=== PATIENT | female | born 1995 | race Caucasian/White ===

== ENCOUNTER 2018-08-11 11:10 | Emergency (ER) | payer SELFPAY ==
[2018-08-11 11:25] VITALS: BP 132/89
[2018-08-11] MEDS ORDERED: methylPREDNISolone SOD SUCC 125 MG/2 ML VIAL IM ONE (11:28)
--- NOTE | 2018-08-11 11:29 | ED Physician Documentation ---
Upper Respiratory Symptoms - HISTORIAN Historian: patient - HPI Stated Complaint: Congestion Chief Complaint: Upper Respiratory Symptoms Additional Information: Patient presents with a 2 day history of nasal congestion, bodyaches, headache, ear pain with bloody nose today. She denies fever. Onset: days ago (2) Duration: constant Context: denies: recent foreign travel Associated Symptoms: earache, runny nose, sinus pain, sinus drainage. denies: chills, shortness of breath - ROS CONST/EYES: denies: weakness CVS/RESP: denies: shortness of breath LYMPH: denies: rash GI/: denies: vomiting, nausea NEURO/PSYCH: denies: dizziness MS/SKIN: muscle aches - PAST HX Lung Disease: none PE Risk Factors: none Allergies/Adverse Reactions: Allergies Allergy/AdvReac Type Severity Reaction Status Date / Time Penicillins Allergy Verified 08/11/18 11:25 Home Medications: Ambulatory Orders Medication Instructions Recorded predniSONE [Deltasone] 20 mg PO DIRECTED #6 tablet 08/11/18 - SOCIAL HX Smoking History: cigarettes, greater than 1 pack/day Alcohol Use: none Drug Use: none - FAMILY HX Family History: none - VITAL SIGNS Vital Signs: Vital Signs Temp Pulse Resp BP Pulse Ox 96.3 F L 114 H 15 132/89 98 08/11/18 11:15 08/11/18 11:15 08/11/18 11:15 08/11/18 11:15 08/11/18 11:15 - REVIEWED ASSESSMENTS Nursing Assessment Reviewed: Yes Vitals Reviewed: Yes ED Results Lab/Radiology - Orders Orders: ED Orders Category Date Time Status methylPREDNISolone SOD SUCC [Solu-MEDROL] Med 08/11/18 11:28 Once 125 mg IM NOW ONE Upper Respiratory Symptoms - EXAM General Appearance: no acute distress, alert EENT: PERRL, ear nml Neck: supple Respiratory: no resp. distress, breath sounds nml, speaks full sentences Abdomen: non-tender, nml bowel sounds CVS: reg rate & rhythm, heart sounds normal Skin: color nml, no rash, warm,dry Extremities: non-tender Neuro/Psych: oriented x3, mood/affect nml Discharge Clincal Impression: Viral upper respiratory illness Prescriptions: predniSONE [Deltasone] 20 mg PO DIRECTED #6 tablet Referrals: Chey Huang MD [STAFF PHYSICIAN] - 2 Days Condition: Stable Disposition: 01 HOME, SELF-CARE Decision to Admit: NO Date of Decison to Admit: 08/11/18 Decision Time: 11:41
== END 2018-08-11 11:40 | disposition home or self-care (01) ==
LOC: ED 11:10
DX: J06.9 Acute upper respiratory infection, unspecified (principal); Z72.0 Tobacco use
CPT/HCPCS: 96372; 99282; 99283; J2930

== ENCOUNTER 2018-09-02 12:36 | Emergency (ER) | payer SELFPAY ==
[2018-09-02 13:06] VITALS: BP 136/88
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
== END 2018-09-02 14:19 | disposition home or self-care (01) ==
LOC: ED 12:36
DX: Z04.1 Encounter for examination and observation following transport accident (principal); M54.2 Cervicalgia; M54.6 Pain in thoracic spine; V49.59XA Passenger injured in collision with other motor vehicles in traffic accident, initial encounter; Y93.89 Activity, other specified; Y92.410 Unspecified street and highway as the place of occurrence of the external cause
CPT/HCPCS: 72040; 72072; 81025; 99283; 99284

== ENCOUNTER 2018-11-15 12:36 | Emergency (ER) | payer SELFPAY ==
--- NOTE | 2018-11-15 12:47 | ED Physician Documentation ---
Sore Throat/Dental Pain - HISTORIAN Historian: patient - HPI Stated Complaint: sore throat x 2 days no fever Chief Complaint: Sore Throat Onset: days ago (2) Context: Possible Infection Associated Symptoms: sore throat, mild, runny nose. denies: fever, chills, unable to swallow, congestion Worsened By: nothing Further Comments: yes (She has no sick contacts. She has no fever. She has a sore throat x 2 days. She had coughing episode this am . She has no rash. She states the OTC meds are not helping "much") - ROS CONST: no problems - PAST HX Past History: none Immunizations: UTD Allergies/Adverse Reactions: Allergies Allergy/AdvReac Type Severity Reaction Status Date / Time Penicillins Allergy Verified 09/02/18 12:57 Home Medications: Ambulatory Orders Medication Instructions Recorded Cyclobenzaprine HCl [Flexeril] 5 mg PO TID PRN #15 tablet 09/02/18 - SOCIAL HX Smoking History: non-smoker Alcohol Use: none Drug Use: none - FAMILY HX Family History: No - VITAL SIGNS Vital Signs: Vital Signs Temp Pulse Resp BP Pulse Ox 136/88 09/02/18 14:18 - REVIEWED ASSESSMENTS Nursing Assessment Reviewed: Yes Vitals Reviewed: Yes ED Results Lab/Radiology - Orders Orders: ED Orders Category Date Time Status Strep [GRP A STREP SCREEN] Stat Lab 11/15/18 Ordered Sore throat Physical Exam - EXAM General Appearance: no acute distress, alert Head/Neck: head nml inspection, no lymphadenopathy. No: pain over sinuses Eyes: eyes nml inspection Mouth/Throat: lips nml, gums nml, pharynx nml, voice nml, no drooling, no air way problems, membranes nml Respiratory: no resp. distress, breath sounds nml CVS: reg. rate & rhythm, heart sounds nml Abdomen: soft Extremities: non-tender Skin: warm/dry, normal color Neuro/Psych: oriented x3 Discharge Clincal Impression: Sore throat Referrals: Primary Doctor,No [Primary Care Provider] - 2 Days Comments: 1. Warm salt water gargles 2. OTC meds as directed and as needed for pain 3. See PCP in 2 days if no improvement 4. Return to ER for any increasing concerns Condition: Stable Disposition: 01 HOME, SELF-CARE Decision to Admit: NO Date of Decison to Admit: 11/15/18 Decision Time: 12:55
[2018-11-15 12:51] VITALS: BP 137/94
== END 2018-11-15 12:57 | disposition home or self-care (01) ==
LOC: ED 12:36
DX: J02.9 Acute pharyngitis, unspecified (principal)
CPT/HCPCS: 87070; 87880; 99282; 99283

== ENCOUNTER 2018-12-05 23:06 | Emergency (ER) | payer SELFPAY ==
[2018-12-05 23:20] VITALS: BP 127/95
--- NOTE | 2018-12-05 23:24 | ED Physician Documentation ---
Fall - HISTORIAN Historian: patient - HPI Stated Complaint: Fall, c/o pain to Rt elbow and knee...also to Rt side though did'nt hit [place] Chief Complaint: Fall Additional Information: Patient presents to ED after falling down the stairs just prior to arrival tonight. Patient states she missed a step and fell down on her right knee and right outstretched hand. She denies hitting her head or loss of consciousness. Patient ambulated into ER. She states her right knee has a small abrasion on it and that hurts not the actual knee. She also complains of right shoulder and right elbow pain. Onset: just prior to arrival Where: home Context: tripped r: mild Associated Symptoms:: no loss of consciousness Location of Pain/Injury: R shoulder, upper extremity (right elbow) Injury to Right Extremity: elbow Injury to Left Extremity: shoulder Further Comments: no - ROS CONST: no problems NEURO: denies: dizziness MS/SKIN/LYMPH: denies: weakness, numbness, back pain EYES/ENT: none CVS/RESP: none GI/: denies: nausea, vomiting - PAST HX Past History: none Allergies/Adverse Reactions: Allergies Allergy/AdvReac Type Severity Reaction Status Date / Time Penicillins Allergy Verified 12/05/18 23:23 Home Medications: Ambulatory Orders Medication Instructions Recorded NK 11/15/18 - SOCIAL HX Smoking History: non-smoker Alcohol Use: none Drug Use: none - FAMILY HX Family History: none - VITAL SIGNS Vital Signs: Vital Signs Temp Pulse Resp BP Pulse Ox 73 16 127/95 99 12/05/18 23:06 12/05/18 23:06 12/05/18 23:06 12/05/18 23:06 - REVIEWED ASSESSMENTS Nursing Assessment Reviewed: Yes Vitals Reviewed: Yes ED Results Lab/Radiology - Radiology Radiology Impressions: Report Submission Date: Dec 06, 2018 12:02:44 AM CDT Patient Study Name: ABIODUN BARNHART Date: Dec 05, 2018 11:25:08 PM CDT Modality Type: DX Gender: F Description: SHOULDER 2 VIEWS OR MORE : 89 Institution: [facility] Physician: JENNIFER MORENO Right shoulder History: Status post fall Three views of the right shoulder demonstrate movement of the humeral head into internal and external rotation without evidence for acute fracture or dislocation. The AC joint is intact. Impression: No osseous abnormality. Electronically signed on Dec 06, 2018 12:02:44 AM CDT by: Allie Gore Report Submission Date: Dec 06, 2018 12:01:38 AM CDT Patient Study Name: ABIODUN BARNHART Date: Dec 05, 2018 11:34:25 PM CDT Modality Type: DX Gender: F Description: ELBOW 3 VIEWS : 89 Institution: [facility] Physician: JENNIFER MORENO Right elbow History: Status post fall Three views of the right elbow demonstrate no evidence for acute fracture or dislocation. There is no joint effusion. Impression: No osseous abnormality. Electronically signed on Dec 06, 2018 12:01:38 AM CDT by: Allie Gore Fall Physical Exam - Physical Exam General Appearance: no acute distress, alert Head: non-tender, no swelling, no obvious injury Neck: non-tender, painless ROM Eye: [place] ENT: nml external inspection, no dental injury Resp/CVS: chest non-tender, breath sounds nml, no resp. distress Abdomen: soft, normal bowel sounds Neuro: oriented x3, CN's nml as tested Skin: color nml, no rash Back: normal inspection Extremities: atraumatic, pelvis stable, nml ROM. No: painful weight bearing Joint: joints nml, nml ROM - Narciso Coma Score Eyes Open: Spontaneous Speech: Oriented Motor: Obeys Commands Discharge Clincal Impression: Fall down stairs Qualifiers: Encounter type: initial encounter Qualified Code(s): W10.8XXA - Fall (on) (from) other stairs and steps, initial encounter Referrals: Primary Doctor,No [REFERRING] - 2 Days Additional Instructions: 1. Tylenol and/or Ibuprofen as needed for pain. 2. Apply ice to affected areas as needed for comfort 3. Stay active 4. Follow up with PCP within 1 week 5. Return to ER for new or worsening symptoms. Condition: Stable Disposition: 01 HOME, SELF-CARE Decision to Admit: NO Date of Decison to Admit: 12/05/18 Decision Time: 00:08
--- NOTE | 2018-12-06 06:22 | Diagnostic Imaging Report ---
JENNIFER MORENO [facility] [address] [facility] [address] [address] Report Submission Date: Dec 06, 2018 12:01:38 AM CDT Patient Study Name: ABIODUN BARNHART Date: Dec 05, 2018 11:34:25 PM CDT Modality Type: DX Gender: F Description: ELBOW 3 VIEWS : 89 Institution: [facility] Physician: JENNIFER MORENO Right elbow History: Status post fall Three views of the right elbow demonstrate no evidence for acute fracture or dislocation. There is no joint effusion. Impression: No osseous abnormality. Electronically signed on Dec 06, 2018 12:01:38 AM CDT by: Allie LIAO
--- NOTE | 2018-12-06 06:25 | Diagnostic Imaging Report ---
JENNIFER MORENO [facility] [address] [facility] [address] [address] Report Submission Date: Dec 06, 2018 12:02:44 AM CDT Patient Study Name: ABIODUN BARNHART Date: Dec 05, 2018 11:25:08 PM CDT Modality Type: DX Gender: F Description: SHOULDER 2 VIEWS OR MORE : 89 Institution: [facility] Physician: JENNIFER MORENO Right shoulder History: Status post fall Three views of the right shoulder demonstrate movement of the humeral head into internal and external rotation without evidence for acute fracture or dislocation. The AC joint is intact. Impression: No osseous abnormality. Electronically signed on Dec 06, 2018 12:02:44 AM CDT by: Allie LIAO
== END 2018-12-06 00:13 | disposition home or self-care (01) ==
LOC: ED 23:06
DX: M25.561 Pain in right knee (principal); M25.521 Pain in right elbow; M25.511 Pain in right shoulder; W10.9XXA Fall (on) (from) unspecified stairs and steps, initial encounter; Y93.01 Activity, walking, marching and hiking; Y92.008 Other place in unspecified non-institutional (private) residence as the place of occurrence of the external cause
CPT/HCPCS: 73030; 73080; 99283; 99284